=== PATIENT | female | born 1945 ===

== ENCOUNTER 2019-02-11 06:00 | Day surgery (SDC) | payer OTHER ==
[~2019-02-11 06:00] MED LIST: ANASTROZOLE1 MG PO; ARICEPT5 MG PO; SERTRALINE HCL25 MG PO
== END 2019-02-11 14:45 | disposition home or self-care (01) ==
LOC: CIR.AMB 06:00
DX: C50.511 Malignant neoplasm of lower-outer quadrant of right female breast (principal); N60.11 Diffuse cystic mastopathy of right breast